=== PATIENT | male | born 1990 | race Caucasian/White ===

== ENCOUNTER 2016-11-14 16:36 | Emergency (ER) | payer SELFPAY ==
[~2016-11-14] VITALS: Ht 188 cm; Wt 97.5 kg
[2016-11-14 16:36] VITALS: BP 126/68
[2016-11-14] MEDS ORDERED: FLUORESCEIN SODIUM OPHTH 1 EA STRIP ONE (17:00)
[2016-11-14] MEDS ORDERED: TETRACAINE HCL/PF 0.5% UD 2 ML BOTTLE ONE (17:00)
== END 2016-11-14 17:34 | disposition home or self-care (01) ==
LOC: ER 16:40
DX: H10.33 Unspecified acute conjunctivitis, bilateral (principal); F17.200 Nicotine dependence, unspecified, uncomplicated
CPT/HCPCS: 99283; A4606; Z7610

== ENCOUNTER 2018-11-21 01:04 | Emergency (ER) | payer SELFPAY ==
--- NOTE | 2018-11-21 01:37 | NUR ---
CALLED IN [facility], NO ANSWER.
--- NOTE | 2018-11-21 02:05 | NUR ---
CALLED IN WAITING ROOM, PATIENT LEFT.
== END 2018-11-21 02:12 | disposition left against medical advice (07) ==
LOC: ER 01:04
DX: Z53.21 Procedure and treatment not carried out due to patient leaving prior to being seen by health care provider (principal)